=== PATIENT | male | born 1985 | race Caucasian/White ===

== ENCOUNTER 2019-11-30 23:20 | Emergency (ER) | payer MEDICAID ==
[~2019-11-30] VITALS: Ht 165.1 cm; Wt 63.5 kg
[2019-11-30 23:25] VITALS: BP 124/66
--- NOTE | 2019-11-30 23:30 | NUR ---
TO LOBBY A/W BED AMBULATORY
[2019-12-01] MEDS ORDERED: SODIUM CHLORIDE FLUSH 10 ML SYR IVF STA (00:38)
--- NOTE | 2019-12-01 00:55 | NUR ---
TO ER BED 2
--- NOTE | 2019-12-01 00:55 | NUR ---
33 YEAR OLD MALE COMPLAINS OF 10/10 CHEST PAIN ON INSPIRATION AND WHEN MOVING SINCE 7PM. PATIENT STATES THE PAIN IS SHARP AND HE FEELS IT THROUGHOUT THE WHOLE CHEST. LUNGS WHEEZING ON EXPIRATION. PATIENT DENIES NAUSEA, VOMITTING, OR DIARRHEA. PATIENT ALERT AND ORIENTED, BREATHING EVEN AND UNLABORED, SKIN WARM AND DRY. BED IN LOWEST POSITION, LOCKED, BED RAIL UPX1. PMH - DENIES MEDICATIONS - DENIES ALLERGIES - NKA
[2019-12-01] MEDS ORDERED: NACL 0.9% 1,000 ML IV ONE (01:15)
[2019-12-01 01:17] LABS: BASOPHILS % (AUTO) 0.1 % (0.0-2.0); EOSINOPHILS % (AUTO) 0.2 % (0.0-4.0); HEMATOCRIT 40.6 % (36-52); HEMOGLOBIN 13.4 g/dL (12.0-18.0); LYMPHOCYTES # (AUTO) 0.7 K/uL (2.0-11.5); LYMPHOCYTES % (AUTO) 7.2 % (20.5-51.1); MEAN CORPUSCULAR HEMOGLOBIN 29 pg (27-31); MEAN CORPUSCULAR HGB CONC 33 g/dL (33-37); MEAN CORPUSCULAR VOLUME 89.4 fL (80-94); MONOCYTES # (AUTO) 0.8 K/uL (0.8-1.0); NEUTROPHILS # (AUTO) 7.9 K/uL (1.8-7.7); PLATELET COUNT (AUTO) 306 K/uL (140-450); RED BLOOD CELL COUNT(AUTO) 4.54 MIL/uL (4.20-6.10); RED CELL DISTRIBUTION WIDTH 13.7 % (11.6-13.7); WHITE BLOOD COUNT (AUTO) 9.4 K/uL (4.8-10.8)
[2019-12-01 01:33] LABS: ALBUMIN 3.8 g/dL (3.4-5.0); ANION GAP 12.5 (8-16); CARBON DIOXIDE 29.6 mmol/L (21-32); CREATININE 0.8 mg/dL (0.7-1.3); POTASSIUM 4.1 mmol/L (3.5-5.1); TOTAL BILIRUBIN 0.4 mg/dL (0.0-1.0)
[2019-12-01 01:34] LABS: NEUTROPHILS % (AUTO) 83.5 % (42.2-75.2)
--- NOTE | 2019-12-01 02:05 | NUR ---
PATIENT ALERT AND AWAKE, BREATHING EVEN AND UNLABORED
--- NOTE | 2019-12-01 02:30 | NUR ---
PATIENT RESTING IN BED, EYES CLOSED, BREATHING EVEN AND UNLABORED
[2019-12-01] MEDS ORDERED: KETOROLAC 30 MG/ML VIAL IVP ONE (02:35)
--- NOTE | 2019-12-01 04:12 | NUR ---
PATIENT RESTING WITH EYES CLOSED, BREATHING EVEN AND UNLABORED
--- NOTE | 2019-12-01 05:17 | NUR ---
PATIENT RESTING WITH EYES CLOSED, BREATHING EVEN AND UNLABORED
[2019-12-01 05:35] VITALS: BP 99/60
--- NOTE | 2019-12-01 05:35 | NUR ---
PATIENT DENIES PAIN
--- NOTE | 2019-12-01 05:35 | NUR ---
Patient discharged with v/s stable. Written and verbal after care instructions ABOUT VIREMIA, PERICARDITIS, AND CHEST WALL PAIN given and explained. Patient alert, oriented and verbalized understanding of instructions. Ambulatory with steady gait. All questions addressed prior to discharge. ID band removed. Patient advised to follow up with PMD. Rx of NAPROSYN given. Patient educated on indication of medication including possible reaction and side effects. Opportunity to ask questions provided and answered.
== END 2019-12-01 05:35 | disposition home or self-care (01) ==
LOC: MED 23:20
DX: B34.9 Viral infection, unspecified (principal); R09.1 Pleurisy
CPT/HCPCS: 36415; 71045; 80053; 84484; 85025; 93005; 96374; 99283; J1885; J7030; Q0092